=== PATIENT | female | born 1940 | race Caucasian/White ===

== ENCOUNTER → 2017-02-18 | Outpatient (CLI) | payer MEDICARE, OTHER ==
[~2017-02-18] MED LIST: ASCO500T8 PO; CALC-141 PO; CEPH-368 PO; CHOL100011 PO; DIAZ5TAB PO; ESOM40CA PO; HYDR-3307 PO; LISI-170 PO; VITA1CAP PO
[2017-02-18 13:15] LABS: BLOOD UREA NITROGEN 18 mg/dL (7-18)
[2017-02-18 13:17] LABS: ASPARTATE AMINO TRANSFERASE 15 U/L (15-37)
== END | disposition home or self-care (01) ==
LOC: LAB 12:42
PROVIDERS: ATTEND Specialist
DX: Z01.812 Encounter for preprocedural laboratory examination (principal)
CPT/HCPCS: 36415; 80053; 85025; 93005